=== PATIENT | female | born 1980 | race African-American/Black ===

== ENCOUNTER 2017-12-15 11:37 | Inpatient (IN) | payer OTHER ==
--- NOTE | 2017-12-15 13:05 | HP ---
COWS - Scale Resting Pulse: 0= [place] 80 or Below Sweatin= Chills/Flushing Restless Observation: 3= Extraneous Movement Pupil Size: 1= Pupils >than Normal Bone or Joint Aches: 2= Severe Diffuse Aches Runny Nose/ Eye Tearin= Runny Nose/Eyes GI Upset > 30mins: 2= Nausea/Diarrhea Tremor Observation: 2= Slight Tremor Visible Yawning Observation: 1= 1-2x During Session Anxiety or Irritability: 2=Irritable/Anxious Goose Flesh Skin: 0=Smooth Skin COWS Score: 16 CIWA Score - CIWA Score Nausea/Vomitin Muscle Tremors: 3 Anxiety: 2 Agitation: 2 Paroxysmal Sweats: 1-Minimal Palms Moist Orientation: 0-Oriented Tacttile Disturbances: 1-Very Mild Itch/Numbness Auditory Disturbances: 1-Very Mild Visual Disturbances: 1-Very Mild Sensitivity Headache: 2-Mild CIWA-Ar Total Score: 16 Admission ROS S - HPI Chief Complaint: i need help to stop using heroin and alcohol Allergies/Adverse Reactions: Allergies Allergy/AdvReac Type Severity Reaction Status Date / Time latex Allergy Verified 12/15/17 12:43 No Known Drug Allergies Allergy Verified 12/15/17 13:13 soy Allergy Verified 12/15/17 12:42 History of Present Illness: this 37 years old female with heroin and alcohol dependence,seeking detox, withdrawal symptom,last detox in 10/28 anxiety,depression,insomnia weight loss nicotine dependence anxiety,depression,,insomnia no significant period of sobriety abnormal pap smear follow up with own manager of clinical - Ebola screening Have you traveled outside of the country in the last 21 days: No Have you had contact with anyone from an Ebola affected area: No Have you been sick,other than usual withdrawal symptoms: No Do you have a fever: No - Review of Systems Constitutional: Chills, Loss of Appetite, Malaise, Night Sweats, Changes in sleep, Weakness, Unintentional Wgt. Loss EENT: reports: Tearing, Nose Congestion Respiratory: reports: No Symptoms reported Cardiac: reports: No Symptoms Reported GI: reports: Diarrhea, Nausea, Vomiting, Abdominal cramping : reports: No Symptoms Reported Musculoskeletal: reports: Back Pain, Joint Pain, Muscle Pain, Joint Stiffness Integumentary: reports: Dryness Neuro: reports: Headache, Tremors Endocrine: reports: No Symptoms Reported Hematology: reports: No Symptoms Reported Psychiatric: reports: No Sypmtoms Reported, Judgement Intact, Mood/Affect Appropiate, Orientated x3, Anxious, Depressed (insomnia) Patient History - Patient Medical History Hx Anemia: No Hx Asthma: Yes (on albuterol inhaler and symbicort) Hx Chronic Obstructive Pulmonary Disease (COPD): No Hx Cancer: No Hx Cardiac Disorders: No Hx Congestive Heart Failure: No Hx Hypertension: No Hx Hypercholesterolemia: No Hx Pacemaker: No HX Cerebrovascular Accident: No Hx Seizures: No Hx Dementia: No Hx Diabetes: No Hx Gastrointestinal Disorders: No Hx Liver Disease: No Hx Genitourinary Disorders: No Hx Sexually Transmitted Disorders: No Hx Renal Disease (ESRD): No Hx Thyroid Disease: No Hx Human Immunodeficiency Virus (HIV): No (last 2017 negative) Hx Hepatitis C: No Hx Depression: Yes (anxiety,insomnia) Hx Suicide Attempt: No Hx Bipolar Disorder: No Hx Schizophrenia: No Other Medical History: no suicidal,no homicidal - Patient Surgical History Past Surgical History: No Other Surgical History: abnormal pap smear follow up by own manager of clinical had caldoscopy - PPD History Previous Implant?: Yes Documented Results: Negative w/o proof Implanted On Prior [facility] Admission?: No PPD to be Administered?: Yes - Reproductive History Patient is a Female of Child Bearing Age (11 -55 yrs old): Yes Last Menstrual Period: 12/13/17 Patient : No - Smoking Cessation Smoking history: Current every day smoker Have you smoked in the past 12 months: Yes Aproximately how many cigarettes per day: 6 Hx Chewing Tobacco Use: No Initiated information on smoking cessation: Yes 'Breaking Loose' booklet given: 12/15/17 - Substance & Tx. History Hx Alcohol Use: Yes Hx Substance Use: Yes Substance Use Type: Alcohol, Heroin Hx Substance Use Treatment: Yes (last 10/28 unknown facility) - Substances Abused Heroin Route: Inhalation Frequency: Daily Amount used: 10-15 bags Age of first use: 36 Date of Last Use: 12/14/17 Alcohol Route: Oral Frequency: Daily Amount used: 2 pints of vodka, 1 6 pack of beer (12 ounces) Age of first use: 18 Date of Last Use: 12/14/17 Family Disease History - Family Disease History Family History: Denies Admission Physical Exam [facility] - Vital Signs Vital Signs: Vital Signs - 24 hr 12/15/17 12:12 Temperature 97.1 F L Pulse Rate 78 Respiratory 18 Rate Blood Pressure 135/90 - Physical General Appearance: Yes: Moderate Distress, Tremorous, Irritable, Sweating, Anxious HEENTM: Yes: Normal ENT Inspection, LAUREN, Pharynx Normal Respiratory: Yes: Lungs Clear, Normal Breath Sounds, No Respiratory Distress Neck: Yes: Within Normal Limits, Supple, Trachea in good position Breast: Yes: Breast Exam Deferred Cardiology: Yes: Within Normal Limits, Regular Rate, S1, S2, Murmur Abdominal: Yes: Within Normal Limits, Normal Bowel Sounds, Non Tender, Flat, Soft Genitourinary: Yes: Within Normal Limits Back: Yes: Normal Inspection, Muscle Spasm Musculoskeletal: Yes: full range of Motion, Back pain, Muscle Pain Extremities: Yes: Normal Range of Motion, Tremors Neurological: Yes: community service officer coordinator II-XII NML intact, Alert, Motor Strength 5/5 Integumentary: Yes: Dry Lymphatic: Yes: Within Normal Limits - Diagnostic (1) Opioid dependence with withdrawal Current Visit: Yes Status: Acute (2) Alcohol dependence with uncomplicated withdrawal Current Visit: Yes Status: Acute (3) Asthma Current Visit: Yes Status: Acute (4) Weight loss Current Visit: Yes Status: Acute (5) Insomnia secondary to depression with anxiety Current Visit: Yes Status: Acute (6) Nicotine dependence Current Visit: Yes Status: Acute (7) Abnormal Pap smear of cervix Current Visit: Yes Status: Acute Cleared for Admission [facility] - Detox or Rehab [facility] Level of Care: Medically Managed Detox Regimen/Protocol: Methadone/Librium [facility] Breath Alcohol Content Breath Alcohol Content: 0 Urine Pregancy Test - Result Urine Test Results: Negative- NO Line Present Urine Drug Screen - Results Drug Screen Negative: No Urine Drug Screen Results: OPI-Opiates, BZO-Benzodiazepines, MTD-Methadone, OXY- Oxycodone
[2017-12-15] MEDS ORDERED: MENTHOL/PHENOL 1 EACH UD MM PRN (13:17)
[2017-12-15] MEDS ORDERED: ACETAMINOPHEN 325 MG TABLET (FP) PO PRN (13:17)
[2017-12-15] MEDS ORDERED: guaiFENesin/D-METHORPHAN HB 10 ML UNIT-DOSE CUPS PO PRN (13:17)
[2017-12-15] MEDS ORDERED: IBUPROFEN 400 MG TABLET (FP) PO PRN (13:17)
[2017-12-15] MEDS ORDERED: MAG HYDROX/AL HYDROX/SIMETH 30 ML UNIT-DOSE CUP PO PRN (13:17)
[2017-12-15] MEDS ORDERED: P-EPHED 60MG/TRIPROLIDI 2.5MG TABLET PO PRN (13:17)
[2017-12-15] MEDS ORDERED: MAGNESIUM CITRATE 300 ML BOTTLE PO PRN (13:17)
[2017-12-15] MEDS ORDERED: NICOTINE POLACRILEX 2 MG GUM BUC PRN (13:17)
[2017-12-15] MEDS ORDERED: MAGNESIUM HYDROX 2400MG/30ML ORAL SUSPENSION 30 ML CUP PO PRN (13:17)
[2017-12-15] MEDS ORDERED: LOPERAMIDE HCL 2 MG CAPSULE PO PRN (13:17)
[2017-12-15] MEDS ORDERED: ALBUTEROL SO4 8 GM HFA INHALER IH PRN (13:21)
[2017-12-15] MEDS ORDERED: METHADONE HCL 10 MG TABLET (FOR DETOX USE ONLY) PO ONE ×2 (14:00→23:00)
[2017-12-15] MEDS ORDERED: COLLOIDAL OATMEAL 1 BAR EACH TP PRN (14:40)
[2017-12-15] MEDS: chlordiazePOXIDE HCL 25 MG CAPSULE PO PRN (15:20)
[2017-12-15] MEDS: NICOTINE 21 MG/24 HOURS TOPICAL PATCH TD SCH (15:21)
[2017-12-15] MEDS: hydrOXYzine PAMOATE 25 MG CAPSULE (FP) PO PRN (16:04)
[2017-12-15] MEDS: chlordiazePOXIDE HCL 25 MG CAPSULE PO SCH ×2 (17:55→22:43)
[2017-12-15] MEDS: THIAMINE HCL 100 MG TABLET (FP) PO SCH (22:43)
[2017-12-15] MEDS: BUDESONIDE/FORMETEROL FUMARATE 160/4.5 mcg INHALER IH SCH (22:43)
[2017-12-15] MEDS: MELATONIN 5 MG TABLETS PO PRN (22:47)
[2017-12-16] MEDS: chlordiazePOXIDE HCL 25 MG CAPSULE PO SCH ×4 (05:26→23:22)
[2017-12-16] MEDS ORDERED: cloNIDine HCL 0.1 MG TABLET PO ONE (08:27)
[2017-12-16] MEDS ORDERED: METHADONE HCL 10 MG TABLET (FOR DETOX USE ONLY) PO SCH (10:00)
--- NOTE | 2017-12-16 10:01 | PN ---
[facility] CIWA - CIWA Score Nausea/Vomitin Muscle Tremors: 2 Anxiety: 3 Agitation: 2 Paroxysmal Sweats: 2 Orientation: 0-Oriented Tacttile Disturbances: 0-None Auditory Disturbances: 0-None Visual Disturbances: 0-None Headache: 2-Mild CIWA-Ar Total Score: 13 [facility] COWS - Scale Resting Pulse: 0= [place] 80 or Below Sweatin=Flushed/Facial Moisture Restless Observation: 1= Difficult to Sit Still Pupil Size: 1= Pupils >than Normal Bone or Joint Aches: 2= Severe Diffuse Aches Runny Nose/ Eye Tearin= Runny Nose/Eyes GI Upset > 30mins: 2= Nausea/Diarrhea Tremor Observation of Outstretched Hands: 2= Slight Tremor Visible Yawning Observation: 0= None Anxiety or Irritability: 2=Irritable/Anxious Goose Flesh Skin: 0=Smooth Skin COWS Score: 14 [facility] Progress Note (SOAP) Subjective: PATIENT C/O SWEATING, NAUSEA, BODY ACHES, NASAL CONGESTION. PATIENT STATES " THIS METHADONE DOSE IS NOT REALLY HELPING ME AT ALL" Objective: 12/16/17 09:59 Vital Signs Temperature 97.9 F 12/16/17 06:00 Pulse Rate 66 12/16/17 06:00 Respiratory Rate 18 12/16/17 06:00 Blood Pressure 133/80 12/16/17 06:00 O2 Sat by Pulse Oximetry (%) SKIN WARM AND MOIST ALERT AND ORIENTED X 3 AMB AD [place] EXT + TREMORS +ANXIOUS/IRRITABLE Assessment: 12/16/17 10:00 WITHDRAWAL SYNDROME Plan: CONTINUE ORAL FLUIDS DETOX ORDERED CLONIDINE 0.1MG PO ONCE CONTINUE TO MONITOR CLINICALLY
[2017-12-16] MEDS: NICOTINE 21 MG/24 HOURS TOPICAL PATCH TD SCH (10:05)
[2017-12-16] MEDS: PRENATAL VITAMINS W/ FOLIC ACID TABLET (FP) PO SCH (10:06)
[2017-12-16] MEDS: BUDESONIDE/FORMETEROL FUMARATE 160/4.5 mcg INHALER IH SCH ×2 (10:06→23:12)
[2017-12-16 10:17] LABS: HEMATOCRIT 37.4 % (32.4-45.2); MCH 27.3 pg (25.7-33.7); MCHC 32.1 g/dl (32.0-36.0); MEAN CELL VOLUME 85.1 fl (80-96); MEAN PLT VOLUME 9.8 fl (7.5-11.1); PLATELET COUNT 218 K/MM3 (134-434); RBC 4.39 M/mm3 (3.60-5.2); RDW 18.7 % (11.6-15.6); WHITE BLOOD COUNT 7.1 K/mm3 (4.0-10.0)
[2017-12-16 10:17] LABS: URINE APPEARANCE CLEAR; URINE BILIRUBIN NEGATIVE (<2.0 mg/dL); URINE COLOR STRAW; URINE GLUCOSE (UA) NEGATIVE (NEGATIVE); URINE KETONE NEGATIVE (NEGATIVE); URINE LEUK ESTERASE NEGATIVE (NEGATIVE); URINE NITRITE NEGATIVE (NEGATIVE); URINE PROTEIN NEGATIVE (NEGATIVE); URINE UROBILINOGEN NEGATIVE mg/dL (0.2-1.0)
[2017-12-16 10:45] LABS: ALBUMIN 3.6 g/dl (3.4-5.0); ALK PHOS 62 U/L (45-117); ANION GAP 5 MMOL/L (8-16); BILIRUBIN,TOTAL 0.3 mg/dL (0.2-1); BLOOD UREA NITROGEN 11 mg/dL (7-18); CALCIUM 8.7 mg/dL (8.5-10.1); CHLORIDE 111 mmol/L (98-107); CO2 28 mmol/L (21-32); CREATININE 0.8 mg/dL (0.55-1.3); GLUCOSE,RANDOM 73 mg/dL (74-106); SGOT/AST 14 U/L (15-37); SGPT/ALT 24 U/L (13-61); SODIUM 144 mmol/L (136-145)
--- NOTE | 2017-12-16 14:06 | CONSULT ---
[facility] Psychiatric Consult - Data Date of interview: 12/16/17 Admission source: [facility] Identifying data: Patient is approached at bedside for the psychiatric evaluation.Ms Miles started cursing, using profanities, arguing that " this place does not allow people to bring their own s....(expletive), a reference to own medications (?). Declines to pursue interview with this verse writer. " I don't have s...(expletive) to discuss with anybody ". Nursing staff is made aware.
[2017-12-16] MEDS: chlordiazePOXIDE HCL 25 MG CAPSULE PO PRN ×2 (14:08→21:19)
--- NOTE | 2017-12-16 17:31 | EKG ---
Test Reason : Blood Pressure : / mmHG Vent. Rate : 075 BPM Atrial Rate : 075 BPM P-R Int : 158 ms QRS Dur : 082 ms QT Int : 382 ms P-R-T Axes : 062 029 018 degrees QTc Int : 426 ms NORMAL SINUS RHYTHM NONSPECIFIC ST ABNORMALITY ABNORMAL ECG NO PREVIOUS ECGS AVAILABLE BASELINE ARTIFACT Confirmed by KELVIN BETTS, [place] ([id number]) on 12/16/2017 5:30:38 PM Referred By: Confirmed By:[place] WARREN MD
[2017-12-16] MEDS: hydrOXYzine PAMOATE 25 MG CAPSULE (FP) PO PRN (21:19)
[2017-12-16] MEDS: THIAMINE HCL 100 MG TABLET (FP) PO SCH (23:12)
[2017-12-17] MEDS: chlordiazePOXIDE HCL 25 MG CAPSULE PO SCH ×2 (05:40→10:34)
[2017-12-17] MEDS: METHADONE HCL 5 MG TABLET (FOR DETOX USE ONLY) PO SCH (10:34)
[2017-12-17] MEDS: PRENATAL VITAMINS W/ FOLIC ACID TABLET (FP) PO SCH (10:34)
[2017-12-17] MEDS: NICOTINE 21 MG/24 HOURS TOPICAL PATCH TD SCH (10:35)
[2017-12-17] MEDS: BUDESONIDE/FORMETEROL FUMARATE 160/4.5 mcg INHALER IH SCH ×2 (10:36→22:30)
[2017-12-17] MEDS: chlordiazePOXIDE HCL 25 MG CAPSULE PO PRN (12:53)
--- NOTE | 2017-12-17 16:56 | PN ---
[facility] CIWA - CIWA Score Nausea/Vomitin-Mild Nausea/No Vomiting Muscle Tremors: 4-Moderate,w/Arms Extend Anxiety: 3 Agitation: 4-Moderately Restless Paroxysmal Sweats: 1-Minimal Palms Moist Orientation: 0-Oriented Tacttile Disturbances: 1-Very Mild Itch/Numbness Auditory Disturbances: 0-None Visual Disturbances: 0-None Headache: 0-None Present CIWA-Ar Total Score: 14 S COWS - Scale Resting Pulse: 0= [place] 80 or Below Sweatin= Chills/Flushing Restless Observation: 1= Difficult to Sit Still Pupil Size: 0= Normal to Room Light Bone or Joint Aches: 2= Severe Diffuse Aches Runny Nose/ Eye Tearin= Nasal Congestion GI Upset > 30mins: 2= Nausea/Diarrhea Tremor Observation of Outstretched Hands: 2= Slight Tremor Visible Yawning Observation: 1= 1-2x During Session Anxiety or Irritability: 1=Feels Anxious/Irritable Goose Flesh Skin: 0=Smooth Skin COWS Score: 11 [facility] Progress Note (SOAP) Subjective: anxiety trouble sleep at josie sweat tremor Objective: 12/17/17 16:55 Vital Signs Temperature 97.3 F L 12/17/17 14:34 Pulse Rate 83 12/17/17 14:34 Respiratory Rate 18 12/17/17 14:34 Blood Pressure 102/72 12/17/17 14:34 O2 Sat by Pulse Oximetry (%) Laboratory Last Values WBC 7.1 K/mm3 (4.0-10.0) 12/16/17 06:00 RBC 4.39 M/mm3 (3.60-5.2) 12/16/17 06:00 Hgb 12.0 GM/dL (10.7-15.3) 12/16/17 06:00 Hct 37.4 % (32.4-45.2) 12/16/17 06:00 MCV 85.1 fl (80-96) 12/16/17 06:00 MCH 27.3 pg (25.7-33.7) 12/16/17 06:00 MCHC 32.1 g/dl (32.0-36.0) 12/16/17 06:00 RDW 18.7 % (11.6-15.6) H 12/16/17 06:00 Plt Count 218 K/MM3 (134-434) 12/16/17 06:00 MPV 9.8 fl (7.5-11.1) 12/16/17 06:00 Sodium 144 mmol/L (136-145) 12/16/17 06:00 Potassium 4.0 mmol/L (3.5-5.1) 12/16/17 06:00 Chloride 111 mmol/L (98-107) H 12/16/17 06:00 Carbon Dioxide 28 mmol/L (21-32) 12/16/17 06:00 Anion Gap 5 MMOL/L (8-16) L 12/16/17 06:00 BUN 11 mg/dL (7-18) 12/16/17 06:00 Creatinine 0.8 mg/dL (0.55-1.3) 12/16/17 06:00 Creat Clearance w eGFR > 60 (>60) 12/16/17 06:00 Random Glucose 73 mg/dL (74-106) L 12/16/17 06:00 Calcium 8.7 mg/dL (8.5-10.1) 12/16/17 06:00 Total Bilirubin 0.3 mg/dL (0.2-1) 12/16/17 06:00 AST 14 U/L (15-37) L 12/16/17 06:00 ALT 24 U/L (13-61) 12/16/17 06:00 Alkaline Phosphatase 62 U/L (45-117) 12/16/17 06:00 Total Protein 7.0 g/dl (6.4-8.2) 12/16/17 06:00 Albumin 3.6 g/dl (3.4-5.0) 12/16/17 06:00 Urine Color Straw 12/16/17 08:30 Urine Appearance Clear 12/16/17 08:30 Urine pH 7.0 (5.0-8.0) 12/16/17 08:30 Ur Specific [place] 1.011 (1.010-1.035) 12/16/17 08:30 Urine Protein Negative (NEGATIVE) 12/16/17 08:30 Urine Glucose (UA) Negative (NEGATIVE) 12/16/17 08:30 Urine Ketones Negative (NEGATIVE) 12/16/17 08:30 Urine Blood Negative (NEGATIVE) 12/16/17 08:30 Urine Nitrite Negative (NEGATIVE) 12/16/17 08:30 Urine Bilirubin Negative (<2.0 mg/dL) 12/16/17 08:30 Urine Urobilinogen Negative mg/dL (0.2-1.0) 12/16/17 08:30 Ur Leukocyte Esterase Negative (NEGATIVE) 12/16/17 08:30 RPR Titer Nonreactive (NONREACTIVE) 12/16/17 06:00 lab noted Assessment: 12/17/17 16:55 withdrawal sx Plan: continue detox
[2017-12-17] MEDS: chlordiazePOXIDE 5 MG CAPSULE PO SCH ×2 (17:54→22:30)
[2017-12-17] MEDS: THIAMINE HCL 100 MG TABLET (FP) PO SCH (22:30)
[2017-12-17] MEDS: MELATONIN 5 MG TABLETS PO PRN (22:31)
[2017-12-17] MEDS: hydrOXYzine PAMOATE 25 MG CAPSULE (FP) PO PRN (23:38)
[2017-12-18] MEDS: chlordiazePOXIDE 5 MG CAPSULE PO SCH ×2 (06:04→10:19)
[2017-12-18] MEDS: chlordiazePOXIDE HCL 25 MG CAPSULE PO PRN (07:39)
[2017-12-18] MEDS: PRENATAL VITAMINS W/ FOLIC ACID TABLET (FP) PO SCH (10:18)
[2017-12-18] MEDS: METHADONE HCL 5 MG TABLET (FOR DETOX USE ONLY) PO SCH (10:19)
[2017-12-18] MEDS: BUDESONIDE/FORMETEROL FUMARATE 160/4.5 mcg INHALER IH SCH ×2 (10:19→22:06)
[2017-12-18] MEDS: NICOTINE 21 MG/24 HOURS TOPICAL PATCH TD SCH (10:19)
--- NOTE | 2017-12-18 11:42 | PN ---
[facility] Progress Note (SOAP) Subjective: trouble sleep at night, restlessness sweat tremor anxiety, Objective: 12/18/17 11:44 Vital Signs Temperature 97.9 F 12/18/17 09:11 Pulse Rate 60 12/18/17 09:11 Respiratory Rate 18 12/18/17 09:11 Blood Pressure 123/72 12/18/17 09:11 O2 Sat by Pulse Oximetry (%) Laboratory Last Values WBC 7.1 K/mm3 (4.0-10.0) 12/16/17 06:00 RBC 4.39 M/mm3 (3.60-5.2) 12/16/17 06:00 Hgb 12.0 GM/dL (10.7-15.3) 12/16/17 06:00 Hct 37.4 % (32.4-45.2) 12/16/17 06:00 MCV 85.1 fl (80-96) 12/16/17 06:00 MCH 27.3 pg (25.7-33.7) 12/16/17 06:00 MCHC 32.1 g/dl (32.0-36.0) 12/16/17 06:00 RDW 18.7 % (11.6-15.6) H 12/16/17 06:00 Plt Count 218 K/MM3 (134-434) 12/16/17 06:00 MPV 9.8 fl (7.5-11.1) 12/16/17 06:00 Sodium 144 mmol/L (136-145) 12/16/17 06:00 Potassium 4.0 mmol/L (3.5-5.1) 12/16/17 06:00 Chloride 111 mmol/L (98-107) H 12/16/17 06:00 Carbon Dioxide 28 mmol/L (21-32) 12/16/17 06:00 Anion Gap 5 MMOL/L (8-16) L 12/16/17 06:00 BUN 11 mg/dL (7-18) 12/16/17 06:00 Creatinine 0.8 mg/dL (0.55-1.3) 12/16/17 06:00 Creat Clearance w eGFR > 60 (>60) 12/16/17 06:00 Random Glucose 73 mg/dL (74-106) L 12/16/17 06:00 Calcium 8.7 mg/dL (8.5-10.1) 12/16/17 06:00 Total Bilirubin 0.3 mg/dL (0.2-1) 12/16/17 06:00 AST 14 U/L (15-37) L 12/16/17 06:00 ALT 24 U/L (13-61) 12/16/17 06:00 Alkaline Phosphatase 62 U/L (45-117) 12/16/17 06:00 Total Protein 7.0 g/dl (6.4-8.2) 12/16/17 06:00 Albumin 3.6 g/dl (3.4-5.0) 12/16/17 06:00 Urine Color Straw 12/16/17 08:30 Urine Appearance Clear 12/16/17 08:30 Urine pH 7.0 (5.0-8.0) 12/16/17 08:30 Ur Specific [place] 1.011 (1.010-1.035) 12/16/17 08:30 Urine Protein Negative (NEGATIVE) 12/16/17 08:30 Urine Glucose (UA) Negative (NEGATIVE) 12/16/17 08:30 Urine Ketones Negative (NEGATIVE) 12/16/17 08:30 Urine Blood Negative (NEGATIVE) 12/16/17 08:30 Urine Nitrite Negative (NEGATIVE) 12/16/17 08:30 Urine Bilirubin Negative (<2.0 mg/dL) 12/16/17 08:30 Urine Urobilinogen Negative mg/dL (0.2-1.0) 12/16/17 08:30 Ur Leukocyte Esterase Negative (NEGATIVE) 12/16/17 08:30 RPR Titer Nonreactive (NONREACTIVE) 12/16/17 06:00 lab noted Assessment: 12/18/17 11:45 withdrawal sx Plan: continue detox
[2017-12-18] MEDS: hydrOXYzine PAMOATE 25 MG CAPSULE (FP) PO PRN (14:52)
[2017-12-18] MEDS: chlordiazePOXIDE HCL 10 MG CAPSULE PO SCH ×2 (17:17→22:06)
[2017-12-18] MEDS: THIAMINE HCL 100 MG TABLET (FP) PO SCH (22:06)
[2017-12-18] MEDS: MELATONIN 5 MG TABLETS PO PRN (22:06)
[2017-12-19] MEDS: chlordiazePOXIDE HCL 10 MG CAPSULE PO SCH ×2 (06:17→10:12)
[2017-12-19] MEDS ORDERED: METHADONE HCL 10 MG TABLET (FOR DETOX USE ONLY) PO SCH (10:00)
[2017-12-19] MEDS: PRENATAL VITAMINS W/ FOLIC ACID TABLET (FP) PO SCH (10:12)
[2017-12-19] MEDS: BUDESONIDE/FORMETEROL FUMARATE 160/4.5 mcg INHALER IH SCH ×2 (10:13→22:15)
[2017-12-19] MEDS: NICOTINE 21 MG/24 HOURS TOPICAL PATCH TD SCH (10:15)
--- NOTE | 2017-12-19 10:25 | PN ---
[facility] Progress Note (SOAP) Subjective: feeling better no tremor less sweat social with peers in day room discuss aftercare Objective: 12/19/17 10:24 Vital Signs Temperature 97.9 F 12/19/17 09:32 Pulse Rate 60 12/19/17 09:32 Respiratory Rate 18 10 09:32 Blood Pressure 105/72 12/19/17 09:32 O2 Sat by Pulse Oximetry (%) Laboratory Last Values WBC 7.1 K/mm3 (4.0-10.0) 12/16/17 06:00 RBC 4.39 M/mm3 (3.60-5.2) 12/16/17 06:00 Hgb 12.0 GM/dL (10.7-15.3) 12/16/17 06:00 Hct 37.4 % (32.4-45.2) 12/16/17 06:00 MCV 85.1 fl (80-96) 12/16/17 06:00 MCH 27.3 pg (25.7-33.7) 12/16/17 06:00 MCHC 32.1 g/dl (32.0-36.0) 12/16/17 06:00 RDW 18.7 % (11.6-15.6) H 12/16/17 06:00 Plt Count 218 K/MM3 (134-434) 12/16/17 06:00 MPV 9.8 fl (7.5-11.1) 12/16/17 06:00 Sodium 144 mmol/L (136-145) 12/16/17 06:00 Potassium 4.0 mmol/L (3.5-5.1) 12/16/17 06:00 Chloride 111 mmol/L (98-107) H 12/16/17 06:00 Carbon Dioxide 28 mmol/L (21-32) 12/16/17 06:00 Anion Gap 5 MMOL/L (8-16) L 12/16/17 06:00 BUN 11 mg/dL (7-18) 12/16/17 06:00 Creatinine 0.8 mg/dL (0.55-1.3) 12/16/17 06:00 Creat Clearance w eGFR > 60 (>60) 12/16/17 06:00 Random Glucose 73 mg/dL (74-106) L 12/16/17 06:00 Calcium 8.7 mg/dL (8.5-10.1) 12/16/17 06:00 Total Bilirubin 0.3 mg/dL (0.2-1) 12/16/17 06:00 AST 14 U/L (15-37) L 12/16/17 06:00 ALT 24 U/L (13-61) 12/16/17 06:00 Alkaline Phosphatase 62 U/L (45-117) 12/16/17 06:00 Total Protein 7.0 g/dl (6.4-8.2) 12/16/17 06:00 Albumin 3.6 g/dl (3.4-5.0) 12/16/17 06:00 Urine Color Straw 12/16/17 08:30 Urine Appearance Clear 12/16/17 08:30 Urine pH 7.0 (5.0-8.0) 12/16/17 08:30 Ur Specific [place] 1.011 (1.010-1.035) 12/16/17 08:30 Urine Protein Negative (NEGATIVE) 12/16/17 08:30 Urine Glucose (UA) Negative (NEGATIVE) 12/16/17 08:30 Urine Ketones Negative (NEGATIVE) 12/16/17 08:30 Urine Blood Negative (NEGATIVE) 12/16/17 08:30 Urine Nitrite Negative (NEGATIVE) 12/16/17 08:30 Urine Bilirubin Negative (<2.0 mg/dL) 12/16/17 08:30 Urine Urobilinogen Negative mg/dL (0.2-1.0) 12/16/17 08:30 Ur Leukocyte Esterase Negative (NEGATIVE) 12/16/17 08:30 RPR Titer Nonreactive (NONREACTIVE) 12/16/17 06:00 lab oted Assessment: 12/19/17 10:25 mild withdrawal sx Plan: medically supervised detox
[2017-12-19] MEDS ORDERED: BACLOFEN 10 MG TABLET (FP) PO ONE (10:26)
[2017-12-19] MEDS ORDERED: ONDANSETRON *ODT* 4 MG TABLET SL ONE (10:26)
[2017-12-19] MEDS: hydrOXYzine PAMOATE 25 MG CAPSULE (FP) PO PRN ×2 (15:38→22:16)
[2017-12-19] MEDS: THIAMINE HCL 100 MG TABLET (FP) PO SCH (22:15)
[2017-12-19] MEDS: MELATONIN 5 MG TABLETS PO PRN (22:16)
[2017-12-20] MEDS ORDERED: METHADONE HCL 5 MG TABLET (FOR DETOX USE ONLY) PO SCH (06:00)
[2017-12-20 07:43] VITALS: BP 109/64; PULSE 70; TEMP 97.9
[2017-12-20] MEDS: hydrOXYzine PAMOATE 25 MG CAPSULE (FP) PO PRN (08:52)
--- NOTE | 2017-12-20 09:16 | DS ---
[facility] Detox Discharge Summary Admission Date: 12/15/17 Discharge Date: 12/20/17 - History Present History: Alcohol Dependence, Opioid Dependence Additional Comments: 37 years old female admitted on 12/15/17 for alcohol and opiate withdrawal sx completed alcohol and opiate detox regimen tolerated well denies alcohol and opiate withdrawal sx alert oriented x 3 no acute distress aftercare [facility] - Physical Exam Results Vital Signs: Vital Signs Temperature 97.9 F 12/20/17 07:42 Pulse Rate 70 12/20/17 07:42 Respiratory Rate 18 12/20/17 07:42 Blood Pressure 109/64 12/20/17 07:42 O2 Sat by Pulse Oximetry (%) Pertinent Admission Physical Exam Findings: alcohol and opiate withdrawal sx Vital Signs Temperature 97.9 F 12/20/17 07:42 Pulse Rate 70 12/20/17 07:42 Respiratory Rate 18 12/20/17 07:42 Blood Pressure 109/64 12/20/17 07:42 O2 Sat by Pulse Oximetry (%) Laboratory Last Values WBC 7.1 K/mm3 (4.0-10.0) 12/16/17 06:00 RBC 4.39 M/mm3 (3.60-5.2) 12/16/17 06:00 Hgb 12.0 GM/dL (10.7-15.3) 12/16/17 06:00 Hct 37.4 % (32.4-45.2) 12/16/17 06:00 MCV 85.1 fl (80-96) 12/16/17 06:00 MCH 27.3 pg (25.7-33.7) 12/16/17 06:00 MCHC 32.1 g/dl (32.0-36.0) 12/16/17 06:00 RDW 18.7 % (11.6-15.6) H 12/16/17 06:00 Plt Count 218 K/MM3 (134-434) 12/16/17 06:00 MPV 9.8 fl (7.5-11.1) 12/16/17 06:00 Sodium 144 mmol/L (136-145) 12/16/17 06:00 Potassium 4.0 mmol/L (3.5-5.1) 12/16/17 06:00 Chloride 111 mmol/L (98-107) H 12/16/17 06:00 Carbon Dioxide 28 mmol/L (21-32) 12/16/17 06:00 Anion Gap 5 MMOL/L (8-16) L 12/16/17 06:00 BUN 11 mg/dL (7-18) 12/16/17 06:00 Creatinine 0.8 mg/dL (0.55-1.3) 12/16/17 06:00 Creat Clearance w eGFR > 60 (>60) 12/16/17 06:00 Random Glucose 73 mg/dL (74-106) L 12/16/17 06:00 Calcium 8.7 mg/dL (8.5-10.1) 12/16/17 06:00 Total Bilirubin 0.3 mg/dL (0.2-1) 12/16/17 06:00 AST 14 U/L (15-37) L 12/16/17 06:00 ALT 24 U/L (13-61) 12/16/17 06:00 Alkaline Phosphatase 62 U/L (45-117) 12/16/17 06:00 Total Protein 7.0 g/dl (6.4-8.2) 12/16/17 06:00 Albumin 3.6 g/dl (3.4-5.0) 12/16/17 06:00 Urine Color Straw 12/16/17 08:30 Urine Appearance Clear 12/16/17 08:30 Urine pH 7.0 (5.0-8.0) 12/16/17 08:30 Ur Specific [place] 1.011 (1.010-1.035) 12/16/17 08:30 Urine Protein Negative (NEGATIVE) 12/16/17 08:30 Urine Glucose (UA) Negative (NEGATIVE) 12/16/17 08:30 Urine Ketones Negative (NEGATIVE) 12/16/17 08:30 Urine Blood Negative (NEGATIVE) 12/16/17 08:30 Urine Nitrite Negative (NEGATIVE) 12/16/17 08:30 Urine Bilirubin Negative (<2.0 mg/dL) 12/16/17 08:30 Urine Urobilinogen Negative mg/dL (0.2-1.0) 12/16/17 08:30 Ur Leukocyte Esterase Negative (NEGATIVE) 12/16/17 08:30 RPR Titer Nonreactive (NONREACTIVE) 12/16/17 06:00 lab noted - Treatment Hospital Course: Detox Protocol Followed, Detoxed Safely, Responded well, Discharged Condition Good, Rehab Referral Accepted Patient has Accepted a Rehab Referral to: [facility] - Medication Discharge Medications: Ambulatory Orders Albuterol Sulfate Inhaler - [Ventolin HFA Inhaler -] 1 - 2 inh PO Q4H #1 inhaler 12/19/17 Budesonide/Formeterol Fumarate [SYMBICORT 160/4.5mcg -] 1 inh PO BID #1 inhaler 12/19/17 - Diagnosis (1) Alcohol dependence with uncomplicated withdrawal Current Visit: Yes Status: Acute (2) Asthma Current Visit: Yes Status: Chronic Qualifiers: Asthma severity: mild Asthma persistence: intermittent Asthma complication type: with status asthmaticus Qualified Code(s): J45.22 - Mild intermittent asthma with status asthmaticus (3) Nicotine dependence Current Visit: Yes Status: Acute Qualifiers: Nicotine product type: cigarettes Substance use status: in withdrawal Qualified Code(s): F17.213 - Nicotine dependence, cigarettes, with withdrawal (4) Opioid dependence with withdrawal Current Visit: Yes Status: Acute (5) Weight loss Current Visit: Yes Status: Acute - AMA Did Patient Leave Against Medical Advice: No
== END 2017-12-20 09:30 | disposition home or self-care (01) | DRG 773 ==
LOC: YASAS 11:37 → Y6N 13:05
PROC: HZ2ZZZZ Detoxification Services for Substance Abuse Treatment (ICD-10-PCS; principal; 2017-12-15)
DX: F11.23 Opioid dependence with withdrawal (principal); F10.230 Alcohol dependence with withdrawal, uncomplicated; F17.213 Nicotine dependence, cigarettes, with withdrawal; F51.05 Insomnia due to other mental disorder; J45.22 Mild intermittent asthma with status asthmaticus; R87.619 Unspecified abnormal cytological findings in specimens from cervix uteri; Z91.040 Latex allergy status; Z87.898 Personal history of other specified conditions
CPT/HCPCS: 36415; 80053; 81003; 85027; 86593; 93005; 93010; J0475; J0735; Q0162